=== PATIENT | female | born 1985 | race Caucasian/White ===

== ENCOUNTER 2024-01-20 18:04 | Inpatient (IN) | payer OTHER ==
--- NOTE | 2024-01-20 18:32 | ED ---
General Adult HPI - General Chief complaint: Abdominal Pain Stated complaint: Kidney stones Time Seen by Provider: 01/20/24 18:05 Source: patient, EMS, old records reviewed Mode of arrival: EMS Limitations: no limitations - History of Present Illness Initial comments: Patient is a 38-year-old female present to the emergency department with concerns for right flank pain. Patient has had symptoms intermittently over the past week. Patient was transferred from [facility]. Patient did have CT scan done there a few days ago showing right-sided kidney stone. Patient was having temperature up to 99. Patient is having continued pain. Patient does have some dysuria. Patient did present there again today and was transferred for urology care - Related Data Allergies Allergy/AdvReac Type Severity Reaction Status Date / Time No Known Allergies Allergy Verified 01/20/24 18:17 Review of Systems ROS Statement: Those systems with pertinent positive or pertinent negative responses have been documented in the HPI. ROS Other: All systems not noted in ROS Statement are negative. Constitutional: Denies: fever Eyes: Denies: eye pain ENT: Denies: ear pain Cardiovascular: Denies: chest pain Gastrointestinal: Reports: as per HPI, abdominal pain. Denies: nausea, vomiting Genitourinary: Reports: as per HPI, dysuria Musculoskeletal: Denies: back pain Past Medical History History of Any Multi-Drug Resistant Organisms: None Reported Past Psychological History: No Psychological Hx Reported Smoking Status: Current every day smoker Past Alcohol Use History: None Reported Past Drug Use History: None Reported General Exam Limitations: no limitations General appearance: alert, in no apparent distress Head exam: Present: normocephalic Eye exam: Present: normal appearance Neck exam: Present: normal inspection Respiratory exam: Present: normal lung sounds bilaterally Cardiovascular Exam: Present: tachycardia GI/Abdominal exam: Present: soft, tenderness (Mild tenderness right flank) Extremities exam: Present: normal inspection Neurological exam: Present: alert Psychiatric exam: Present: normal affect, normal mood Skin exam: Present: normal color Course Vital Signs 01/20/24 18:09 Temperature 97.9 F Pulse Rate 110 H Respiratory 18 Rate Blood Pressure 118/80 O2 Sat by Pulse 98 Oximetry Medical Decision Making - Medical Decision Making Was pt. sent in by a medical professional or institution (, PA, PRESS SMITH HELPER, urgent care, hospital, or fdc...) When possible be specific @ -Patient was sent from [facility] Did you speak to anyone other than the patient for history (EMS, parent, family, police, friend...)? What history was obtained from this source @ -No Did you review nursing and triage notes (agree or disagree)? Why? @ -I reviewed and agree with nursing and triage notes Were old charts reviewed (outside hosp., previous admission, EMS record, old EKG, old radiological studies, urgent care reports/EKG's, fdc records)? Report findings @ -Did review chart from [facility] Differential Diagnosis (chest pain, altered mental status, abdominal pain women, abdominal pain men, vaginal bleeding, weakness, fever, dyspnea, syncope, headache, dizziness, GI bleed, back pain, seizure, CVA, palpatations, mental health, musculoskeletal)? @ -Differential Abdominal Pain Women: Appendicitis, Cholecystitis, diverticulosis, ischemic bowel, pancreatitis, hepatitis, UTI, gastroenteritis, AAA, incarcerated hernia, bowel obstruction, constipation, inflammatory bowel, hepatitis, peptic ulcer disease, splenic infarction, perforated viscus, vulvitis, ovarian torsion, PID, kidney stone, placenta abruption, this is not meant to be an all-inclusive list EKG interpreted by me (3pts min.). @ -As above X-rays interpreted by me (1pt min.). @ -KUB shows no acute process CT interpreted by me (1pt min.). @ -None done U/S interpreted by me (1pt. min.). @ -None done What testing was considered but not performed or refused? (CT, X-rays, U/S, labs)? Why? @ -Consider CT scan however patient had 1 recently. Report reviewed What meds were considered but not given or refused? Why? @ -None Did you discuss the management of the patient with other professionals (professionals i.e. DrWhit, PA, PRESS SMITH HELPER, lab, RT, psych nurse, socially responsible investment adviser, air marshal, teacher, youth probation officer, medical case worker)? Give summary @ -Case was discussed with Dr. Balderas who will admit Was smoking cessation discussed for >3mins.? @ -No Was critical care preformed (if so, how long)? @ -No Were there social determinants of health that impacted care today? How? (Homelessness, low income, unemployed, alcoholism, drug addiction, transportation, low edu. Level, literacy, decrease access to med. care, longterm, rehab)? @ -No Was there de-escalation of care discussed even if they declined (Discuss DNR or withdrawal of care, Hospice)? DNR status @ -No What co-morbidities impacted this encounter? (DM, HTN, Smoking, COPD, CAD, Cancer, CVA, ARF, Chemo, Hep., AIDS, mental health diagnosis, sleep apnea, morbid obesity)? @ -None Was patient admitted / discharged? Hospital course, mention meds given and route, prescriptions, significant lab abnormalities, going to OR and other pertinent info. @ -Patient made aware of plan and recommendations to stay NPO. Patient will be admitted to urology's. Admission orders written. Undiagnosed new problem with uncertain prognosis? @ -No Drug Therapy requiring intensive monitoring for toxicity (Heparin, Nitro, Insulin, Cardizem)? @ -No Were any procedures done? @ -No Diagnosis/symptom? @ -Ureterolithiasis Acute, or Chronic, or Acute on Chronic? @ -Acute Uncomplicated (without systemic symptoms) or Complicated (systemic symptoms)? @ -Complicated with infection potential Side effects of treatment? @ -No Exacerbation, Progression, or Severe Exacerbation? @ -No Poses a threat to life or bodily function? How? (Chest pain, [place], [place], pneumonia, PE, COPD, DKA, ARF, appy, cholecystitis, CVA, Diverticulitis, Homicidal, Suicidal, threat to staff... and all critical care pts) @ -No Patient did receive IV antibiotics prior to transfer. This will be continued. Disposition Clinical Impression: Ureterolithiasis Disposition: ADMITTED IP TO THIS HOSP Is patient prescribed a controlled substance at d/c from ED?: No Referrals: None,Stated [Primary Care Provider] - 1-2 days Time of Disposition: 18:56
[2024-01-20] MEDS ORDERED: NALOXONE 0.4 MG/ML 1 ML VIAL IV PRN (18:53)
[2024-01-20] MEDS ORDERED: ONDANSETRON 4 MG/2 ML VIAL IVP PRN (18:53)
[2024-01-20] MEDS: SODIUM CHLORIDE 0.9% 1,000 ML IV SCH (19:44)
--- NOTE | 2024-01-20 19:49 | XR ---
EXAMINATION TYPE: XR KUB DATE OF EXAM: 01/20/2024 6:40 PM CLINICAL INDICATION:Female, 38 years old with history of stone pain; H COMPARISON: None. TECHNIQUE: One radiographic view of the abdomen was obtained. FINDINGS: The bowel gas pattern is nonspecific without dilated loops of small or large bowel. There i s no evidence for organomegaly or pneumoperitoneum. The osseous structures are intact. 5 mm density near the right ureterovesicular junction. Fecal material and gas are demonstrated throughout the colo n and rectum. Bilateral tubal ligation devices bilaterally. IMPRESSION: 1. There is a density near the bladder in the pelvis measuring up to 5 mm possibly representing flora ent's stone at the ureterovesicular junction. 2. Nonspecific bowel gas pattern without radiographic evidence for acute process.
[2024-01-20 20:02] LABS: Appearance,Urine Clear (Clear); Bacteria,Urine Occasional /hpf; Bilirubin,Urine Negative (Negative); Blood,Urine Trace (Negative); Color,Urine Colorless; Glucose,Urine (UA) Negative (Negative); Ketones,Urine Negative (Negative); Leukocyte Esterase,Urine Large (Negative); Nitrite,Urine Negative (Negative); PH, Urine 5.5 (5.0-8.0); Protein,Urine Negative (Negative); RBC,Urine 1 /hpf (0-5); Specific Gravity,Urine 1.003 (1.001-1.035); Squamous Epithelial Cell,Urine 1 /hpf (0-4); Urobilinogen,Urine <2.0 mg/dL (<2.0); WBC,Urine 31 /hpf (0-5)
--- NOTE | 2024-01-20 20:43 | P.GSHP ---
History of Present Illness H&P Date: 01/20/24 Chief Complaint: Right flank pain The patient is a 38-year-old white female who presented to [facility] on January 14, 2024 with right flank pain. CT scan of the abdomen and pelvis without contrast was obtained, revealing moderate right hydroureteronephrosis due to a 5 mm right UVJ calculus. Bilateral punctate renal calculi were also seen. She was not told at that time that she had a UTI, and was not placed on antibiotics. She presented back to the ER today with increased pain, which is radiating to the right lower quadrant. She also reports mild dysuria, low-grade fever, and chills. Urinalysis obtained at [facility] showed small leukocytes, positive nitrates, TNTC WBC, TNTC RBC. The WBC count was 23,000. The serum lactic acid level was 4.0. The serum creatinine level was 1.0, and the serum calcium level was 8.5. She was transferred to [facility] for further management. She received Rocephin prior to transfer. - Constitutional Constitutional: Reports chills, Reports fever - Gastrointestinal Gastrointestinal: Denies nausea, Denies vomiting - Genitourinary (Female) Genitourinary: Reports dysuria, Reports flank pain, Reports kidney stones, Denies hematuria Past Medical History History of Any Multi-Drug Resistant Organisms: None Reported Past Psychological History: No Psychological Hx Reported Smoking Status: Current every day smoker Past Alcohol Use History: None Reported Past Drug Use History: None Reported Medications and Allergies Home Medications Medication Instructions Recorded Confirmed Type No Known Home Medications 01/20/24 01/20/24 History Allergies Allergy/AdvReac Type Severity Reaction Status Date / Time No Known Allergies Allergy Verified 01/20/24 19:00 Surgical - Exam Vital Signs Temp Pulse Resp BP Pulse Ox 97.9 F 110 H 18 118/80 98 01/20/24 18:09 01/20/24 18:09 01/20/24 18:09 01/20/24 18:09 01/20/24 18:09 - General well developed, well nourished, no distress - Respiratory normal respiratory effort - Abdomen Abdomen: soft, tender (Mild right-sided tenderness), no guarding, no rigid, no rebound, no distended - Psychiatric oriented to time, oriented to person, oriented to place, speech is normal, memory intact Results - Imaging Abdominal x-ray: report reviewed, image reviewed CT scan - abdomen: report reviewed Assessment and Plan (1) Acute pyelonephritis Current Visit: Yes Status: Acute Code(s): N10 - ACUTE PYELONEPHRITIS SNOMED Code(s): 07363676 (2) Ureterolithiasis Current Visit: Yes Status: Acute Code(s): N20.1 - CALCULUS OF URETER SNOMED Code(s): 15713410 Plan: The patient appears to have acute right pyelonephritis complicated by an obstructing right distal ureteral calculus. The increased lactic acid level suggests that she may have underlying sepsis. I have recommended that she undergo cystoscopy with right ureteral stent insertion. The rationale for the stent, to relieve ureteral obstruction, was explained to the patient. She was also made aware of potential risks, which include anesthesia, inability to successfully place the stent, and ureteral injury. I explained to her that she will remain hospitalized until the infection is improving, and that she will be discharged home on oral antibiotics. She was also made aware of the fact that she will require a secondary procedure in 3 to 4 weeks, once the infection has cleared, consisting of cystoscopy, right ureteral stent removal, right ureteroscopy with laser lithotripsy and possible stone basketing. Time with Patient: Greater than 30
[2024-01-20] MEDS ORDERED: fentaNYL (PF) 50 MCG/ML 2 ML AMP ONE (20:51)
[2024-01-20] MEDS ORDERED: PHENYLEPHRINE 10 MG/ML VIAL ONE (20:51)
[2024-01-20] MEDS ORDERED: LIDOCAINE 1% INJ 10MG/ML (20 ML MDV) ONE (20:51)
[2024-01-20] MEDS ORDERED: PROPOFOL 10 MG/ML 20 ML VIAL IV ONE (20:51)
[2024-01-20] MEDS ORDERED: ESMOLOL 100 MG/10 ML VIAL ONE (20:51)
[2024-01-20] MEDS ORDERED: MIDAZOLAM 2 MG/2 ML VIAL ONE (20:51)
[2024-01-20] MEDS: SODIUM CHLORIDE 0.9% 1,000 ML IV ONE (20:56)
--- NOTE | 2024-01-20 21:39 | P.OP ---
Date of Procedure: 01/20/24 Preoperative Diagnosis: Right hydronephrosis secondary to right ureteral calculus Postoperative Diagnosis: Same Procedure(s) Performed: Cystoscopy, right ureteroscopy, right ureteral stent insertion Anesthesia: SOUTHA Surgeon: Fly Benites Estimated Blood Loss (ml): 0 IV fluids (ml): 800 Pathology: none sent Condition: stable Disposition: PACU Indications for Procedure: The patient is a 38-year-old white female who presented to [facility] with right flank pain due to a 5 mm right UVJ calculus. She has experienced worsening symptoms, and shows signs of sepsis. She was transferred to [facility] and now comes for stent insertion. Operative Findings: Obstructing, impacted 5 mm right distal ureteral calculus. Description of Procedure: The patient was taken to the operating room and placed in the dorsolithotomy position, with legs supported in Fadi stirrups. The external genitalia was prepped and draped sterilely. The 30 lens was used to introduce the 22-[place] Stortz cystoscopic sheath through the urethra and into the bladder under direct vision. The bladder was examined in its entirety. Both ureteral orifices were of normal anatomic location and configuration. No tumors or foreign bodies were seen. A 0.035 inch Glidewire was passed through the cystoscope. The right ureteral orifice was cannulated, and the Glidewire was slowly advanced 1 to 2 cm, at which point it met obstruction due to a 5 mm radiopaque ureteral calculus. Multiple attempts were made to alter the angle of the Glidewire, but it could not be advanced beyond the calculus. The cystoscope was removed, and the ACMI semirigid ureteroscope was advanced into the bladder. The right ureteral orifice was cannulated, and the ureteroscope was advanced up to the calculus. The calculus was noted to be impacted, with mucosa growing over a portion of the calculus. A small gap was identified between the calculus and the medial wall of the ureter. The Glidewire was passed through this And advanced up to the renal pelvis. The ureteroscope was removed, and the Glidewire was backloaded into the cystoscope, which was passed into the bladder. A 24 cm, 6-[place] double-J ureteral stent was placed over the wire. Proper stent positioning was verified fluoroscopically and endoscopically. Cloudy urine drained from the stent. With the beak of the cystoscope immediately adjacent to the distal end of the stent, urine was drained through the cystoscope and sent for culture and sensitivity. The bladder was emptied and the cystoscope removed. The patient tolerated the procedure well was taken to the recovery room in stable condition.
[2024-01-20] MEDS ORDERED: HYDROmorphone 1 MG/ML 1 ML SYRINGE IVP PRN (21:41)
[2024-01-20] MEDS: HYDROmorphone 0.5 MG/0.5 ML SYRINGE IVP ONE (21:53)
--- NOTE | 2024-01-20 22:00 | FL ---
EXAMINATION TYPE: FL guidance operating room Intraoperative/procedural fluoroscopic services were pro vided. Total fluoroscopy time is 7 seconds with a total of 1 submitted images to PACS. Please see the operative/procedural note for further details. DAP: 1.235 mGym2
[2024-01-20] MEDS: ADENOSINE 3 MG/ML 2 ML VIAL IVP ONE (22:52)
[2024-01-20 23:01] LABS: Glucose,Whole Blood 92 mg/dL (70-110)
[2024-01-20] MEDS: DEXTROSE 5%-0.45% NACL 1,000 ML IV SCH (23:07)
[2024-01-20] MEDS: HEPARIN SODIUM,PORCINE 5,000 UNIT/ML 1 ML VIAL SQ SCH (23:36)
[2024-01-20] MEDS: ACETAMINOPHEN TAB 325 MG TAB PO PRN (23:57)
[2024-01-21] MEDS: HYDROmorphone 0.5 MG/0.5 ML SYRINGE IVP PRN (04:49)
[2024-01-21] MEDS: HYDROmorphone 1 MG/ML 1 ML SYRINGE IVP PRN (08:10)
[2024-01-21] MEDS: PANTOPRAZOLE 40 MG/10 ML VIAL IV SCH (08:10)
[2024-01-21 08:42] LABS: Basophils # (A) 0.04 X 10*3/uL (0.00-0.10); Basophils % (A) 0.2 %; Eosinophils # (A) 0.16 X 10*3/uL (0.04-0.35); HCT 38.2 % (37.2-46.3); HGB 12.3 g/dL (12.0-15.0); Lymphocytes # (A) 0.69 X 10*3/uL (0.90-5.00); Lymphocytes % (A) 4.1 %; MCH 30.8 pg (27.0-32.0); MCHC 32.2 g/dL (32.0-37.0); MCV 95.5 FL (80.0-97.0); Mean Platelet Volume 11.6 FL (9.5-12.2); Monocytes # (A) 1.08 X 10*3/uL (0.20-1.00); Monocytes % (A) 6.4 %; NRBC Per 100 WBC 0 X 10*3/uL (0.00-0.01); Neutrophils # (A) 14.65 X 10*3/uL (1.80-7.70); Neutrophils % (A) 87.4 %; Platelet Count 136 X 10*3/uL (140-440); RDW 13.5 % (11.5-14.5); WBC 16.77 X 10*3/uL (4.50-10.00)
[2024-01-21 08:53] LABS: ALT 16 U/L (8-44); AST 19 U/L (13-35); Albumin 3.1 g/dL (3.8-4.9); Albumin/Globulin Ratio 1.55 Ratio (1.60-3.17); Alkaline Phosphatase 108 U/L (41-126); BUN/Creat Ratio 13.75 Ratio (12.00-20.00); Calcium 7.6 mg/dL (8.7-10.3); Carbon Dioxide 21.3 mmol/L (21.6-31.8); Chloride 104 mmol/L (96-109); Glucose 114 mg/dL (70-110); Potassium 4.1 mmol/L (3.5-5.5); Sodium 136 mmol/L (135-145); Total Bilirubin 0.4 mg/dL (0.3-1.2); Total Protein 5.1 g/dL (6.2-8.2)
--- NOTE | 2024-01-21 09:11 | P.PN ---
Subjective Progress Note Date: 01/21/24 Principal diagnosis: Acute right pyelonephritis Patient was admitted with right hydronephrosis due to a right distal ureteral calculus. Additionally, she appears to have a UTI with sepsis. She remains tachycardic but is afebrile. She states that her pain is improved. Objective - Vital Signs Vital signs: Vital Signs Temp 98.9 F 01/21/24 06:00 Pulse 124 H 01/21/24 04:00 Resp 18 01/21/24 04:00 BP 116/89 01/21/24 04:00 Pulse Ox 97 01/21/24 04:00 FiO2 Intake & Output 01/20/24 01/20/24 01/21/24 06:59 18:59 06:59 Intake Total 2290 Output Total 800 Balance 1490 Weight 81.647 kg 86.7 kg Intake: IV 1750 Dextrose 5%-0.45% NaCl 1, 700 000 ml @ 100 mls/hr IV . Q10H [facility] Rx#:[id number] cefTRIAXone 1 gm In 50 Sodium Chloride 0.9% 50 ml @ 100 mls/hr IVPB Q12HR [facility] Rx#:[id number] Oral 540 Output: Urine 800 Estimated Blood Loss 0 Other: Voiding Method Bedside Commode - Constitutional General appearance: Present: average body habitus, cooperative, no acute distress - Gastrointestinal Gastrointestinal Comment(s): Soft, non-distended. Mild right-sided tenderness, no guarding or rebound. - Psychiatric Psychiatric: Present: A&O x's 3 - Labs CBC & Chem 7: 01/21/24 05:47 01/21/24 05:47 Labs: Abnormal Lab Results - Last 24 Hours (Table) 01/20/24 Range/Units 19:41 Urine Blood Trace H (Negative) Ur Leukocyte Esterase Large H (Negative) Urine WBC 31 H (0-5) /hpf Urine Bacteria Occasional H (None) /hpf Assessment and Plan (1) Acute pyelonephritis Current Visit: Yes Status: Acute Code(s): N10 - ACUTE PYELONEPHRITIS SNOMED Code(s): 17086458 (2) Ureterolithiasis Current Visit: Yes Status: Acute Code(s): N20.1 - CALCULUS OF URETER SNOMED Code(s): 26041724 Plan: The patient appears to have acute right pyelonephritis complicated by an obstructing right distal ureteral calculus. She has undergone right ureteral stent insertion and is receiving ceftriaxone, and her condition is improved. The urine culture is pending.
[2024-01-21] MEDS: HYDROcodone/APAP 5-325MG 1 EACH TAB PO PRN (23:00)
[2024-01-22] MEDS: Acetaminophen-Codeine 300-30mg TAB PO PRN (07:41)
--- NOTE | 2024-01-22 09:20 | P.PN ---
Subjective Progress Note Date: 01/22/24 Principal diagnosis: Acute right pyelonephritis Patient was admitted with right hydronephrosis due to a right distal ureteral calculus. Additionally, she appears to have a UTI with sepsis. She remains tachycardic but is afebrile. She states that her flank pain is improved. She denies dysuria and hematuria. Her primary complaint at this time is a headache. Objective - Vital Signs Vital signs: Vital Signs Temp 98.2 F 01/22/24 04:00 Pulse 106 H 01/22/24 04:00 Resp 27 H 01/22/24 04:00 BP 125/99 01/22/24 04:00 Pulse Ox 96 01/22/24 04:00 FiO2 Intake & Output 01/21/24 01/21/24 01/22/24 06:59 18:59 06:59 Intake Total 2290 850 1580 Output Total 790 066 3791 Balance 1490 100 380 Weight 86.7 kg 89 kg Intake: IV 6789 194 1998 Dextrose 5%-0.45% NaCl 1, 986 957 1099 000 ml @ 100 mls/hr IV . Q10H [facility] Rx#:[id number] cefTRIAXone 1 gm In 50 50 50 Sodium Chloride 0.9% 50 ml @ 100 mls/hr IVPB Q12HR [facility] Rx#:[id number] Oral 540 380 Output: Urine 659 184 7969 Estimated Blood Loss 0 Other: Voiding Method Bedside Commode Bedside Commode Bedside Commode # Voids 1 2 - Constitutional General appearance: Present: average body habitus, cooperative, mild distress - Gastrointestinal General gastrointestinal: Present: soft. Absent: distended, tenderness - Psychiatric Psychiatric: Present: A&O x's 3 - Labs CBC & Chem 7: 01/21/24 05:47 01/21/24 05:47 Labs: Abnormal Lab Results - Last 24 Hours (Table) 01/21/24 01/21/24 Range/Units 05:47 05:47 WBC 16.77 H (4.50-10.00) X 10*3/uL RBC 4.00 L (4.10-5.20) X 10*6/uL Plt Count 136 L (140-440) X 10*3/uL Immature Gran # 0.15 H (0.00-0.04) X 10*3/uL Neutrophils # 14.65 H (1.80-7.70) X 10*3/uL Lymphocytes # 0.69 L (0.90-5.00) X 10*3/uL Monocytes # 1.08 H (0.20-1.00) X 10*3/uL Carbon Dioxide 21.3 L (21.6-31.8) mmol/L Glucose 114 H (70-110) mg/dL Calcium 7.6 L (8.7-10.3) mg/dL Total Protein 5.1 L (6.2-8.2) g/dL Albumin 3.1 L (3.8-4.9) g/dL Albumin/Globulin Ratio 1.55 L (1.60-3.17) Ratio Assessment and Plan (1) Acute pyelonephritis Current Visit: Yes Status: Acute Code(s): N10 - ACUTE PYELONEPHRITIS SNOMED Code(s): 42091031 (2) Ureterolithiasis Current Visit: Yes Status: Acute Code(s): N20.1 - CALCULUS OF URETER SNOMED Code(s): 17886911 Plan: The patient appears to have acute right pyelonephritis complicated by an obstructing right distal ureteral calculus. She has undergone right ureteral stent insertion and is receiving ceftriaxone, and her condition is improved. The urine culture is pending, but I am hopeful that preliminary results will be available later today. Excedrin has been ordered for her headache..
[2024-01-22] MEDS: ASPIRIN-ACET-CAFF 250-250-65MG 1 EACH TAB PO PRN (15:20)
[2024-01-22 20:00] LABS: Basophils % (A) 1 %; Eosinophils # (A) 0.3 k/uL (0-0.7); Eosinophils % (A) 4 %; HCT 36.5 % (34.0-46.0); HGB 11.6 gm/dL (11.4-16.0); Lymphocytes % (A) 13 %; MCH 31.3 pg (25.0-35.0); MCHC 31.9 g/dL (31.0-37.0); MCV 98.2 fL (80.0-100.0); Monocytes # (A) 0.6 k/uL (0-1.0); Monocytes % (A) 8 %; Neutrophils # (A) 5.5 k/uL (1.3-7.7); Neutrophils % (A) 70 %; Platelet Count 158 k/uL (150-450); RBC 3.72 m/uL (3.80-5.40); RDW 13.4 % (11.5-15.5); WBC 7.8 k/uL (3.8-10.6)
[2024-01-23 09:43] VITALS: RESP 16
[2024-01-23] MEDS: amLODIPine 5 MG TAB PO SCH (10:31)
[2024-01-23 12:18] VITALS: BP 136/87; PULSE 87; TEMP 98
--- NOTE | 2024-01-23 15:43 | P.CONS ---
History of Present Illness - Reason for Consult Consult date: 01/23/24 - Chief Complaint medical consult for htn, headache - History of Present Illness 38 year old woman with no known medical history presented for nephroureteral stent with urology with evidence of UTI. Medicine was consulted for HTN and headache. Pt says her headache started along with her symptoms of flank pain a few days ago. She has never been diagnosed with HTN in the past. She does not follow with a PCP in clinic. She has no chest pain, n/v, visual changes, muscular weakness. She is otherwise doing well s/p NUS placement. Denies f/c, abd pain. Flank pain has improved. Pt is afebrile, 139/102, HR 93, 100% RA. CBC, BMP, LFTs are unremarkable. UA showed 31 WBC, +LE, occasional bacteria. KUB XR showed density near the bladder in the pelvis measuring up to 5mm. All Systems reviewed and pertinent positives and negatives noted in HPI, all other symptoms are negative Gen: In NAD, non-toxic HEENT: normocephalic, atraumatic, hearing acuity is intant, mucous membranes moist CVS: perfusing all extremities well, no pitting edema, Respiratory: symmetric chest expansion, no accessory muscle use, GI: soft, NTTP, ND, : no suprapubic tenderness, no CVA tenderness MSK/Derm: no rashes, cyanosis Neuro: CN II-XII intact, no motor weakness, Psych: cooperative, euthymic mood, judgment and insight is intact Labs and Images as above Assessment/plan: HTN, essential Headache -start patient on amlodipine -recommend f/u with PCP referral to titrate meds -pain control for headache which is likely related to pain/medications from UTI Complicated UTI Nephrolithiasis -care per primary team Pt is full code. Pt is medically cleared for discharge with new script for amlodipine. Past Medical History Past Medical History: No Reported History History of Any Multi-Drug Resistant Organisms: None Reported Past Surgical History: No Surgical Hx Reported Past Anesthesia/Blood Transfusion Reactions: No Reported Reaction Past Psychological History: No Psychological Hx Reported Smoking Status: Current every day smoker Past Alcohol Use History: None Reported Past Drug Use History: None Reported - Past Family History Father Additional Family Medical History / Comment(s): Appendectomy Mother Family Medical History: Cancer Additional Family Medical History / Comment(s): cervical cancer Medications and Allergies Home Medications Medication Instructions Recorded Confirmed Type Ciprofloxacin HCl [Cipro] 500 mg PO Q12HR #10 tab 01/23/24 Rx Ketorolac [Toradol] 10 mg PO Q6HR PRN #10 tab 01/23/24 Rx RX: Tamsulosin [Flomax] 0.4 mg PO DAILY #30 cap 01/23/24 Rx RX: amLODIPine [Norvasc] 5 mg PO DAILY #30 tab 01/23/24 Rx Allergies Allergy/AdvReac Type Severity Reaction Status Date / Time No Known Allergies Allergy Verified 01/20/24 19:00 Physical Exam Osteopathic Statement: *. No significant issues noted on an osteopathic structural exam other than those noted in the History and Physical/Consult. Vitals: Vital Signs Temp Pulse Resp BP Pulse Ox 01/23/24 11:48 98.0 F 87 16 136/87 100 01/23/24 08:00 98.1 F 93 16 141/105 100 01/23/24 04:00 97.5 F L 105 H 12 139/102 100 01/23/24 00:00 98.0 F 93 16 145/102 100 01/22/24 20:00 98.1 F 95 16 152/99 100 01/22/24 16:00 97.8 F 105 H 18 140/100 Intake and Output 01/23/24 01/23/24 01/23/24 06:59 14:59 22:59 Intake Total 1150 1080 Output Total 1000 600 Balance 150 480 Intake: IV 650 600 Dextrose 5%-0.45% NaCl 1, 600 550 000 ml @ 50 mls/hr IV . Q20H [facility] Rx#:[id number] cefTRIAXone 1 gm In 50 50 Sodium Chloride 0.9% 50 ml @ 100 mls/hr IVPB Q12HR [facility] Rx#:[id number] Oral 500 480 Output: Urine 1000 600 Other: Voiding Method Bedside Commode Bedside Commode # Voids 2 1 Weight 89.4 kg Results CBC & Chem 7: 01/22/24 19:45 01/21/24 05:47 Labs: Abnormal Lab Results - Last 24 Hours (Table) 01/22/24 Range/Units 19:45 RBC 3.72 L (3.80-5.40) m/uL Microbiology - Last 24 Hours (Table) 01/20/24 21:32 Urine Culture - Final Urine,Ureter 01/20/24 19:41 Urine Culture - Final Urine,Voided
[2024-01-24] MEDS ORDERED: PANTOPRAZOLE 40 MG TABLET PO SCH (07:30)
== END 2024-01-23 13:40 | disposition home or self-care (01) | DRG 720 ==
LOC: EC 18:04 → 6NMEDSUR 18:53 → 2SICU 22:17 → OBSVTOIN 22:49
PROVIDERS: ADMIT Urology; ATTEND Urology
PROC: 0T768DZ Dilation of Right Ureter with Intraluminal Device, Via Natural or Artificial Opening Endoscopic (ICD-10-PCS; principal; 2024-01-20 20:30)
DX: A41.9 Sepsis, unspecified organism (principal); N13.6 Pyonephrosis; F17.210 Nicotine dependence, cigarettes, uncomplicated; R00.0 Tachycardia, unspecified; I10 Essential (primary) hypertension; Z79.899 Other long term (current) drug therapy
CPT/HCPCS: 74018; 80053; 81001; 81025; 85025; 87086; 96360; 99285

== ENCOUNTER 2024-01-30 07:32 | Day surgery (SDC) | payer OTHER ==
--- NOTE | 2024-01-26 01:07 | P.GSHP ---
History of Present Illness H&P Date: 01/26/24 Chief Complaint: Right flank pain The patient is a 38-year-old white female who presented to [facility] on January 14, 2024 with right flank pain. CT scan of the abdomen and pelvis without contrast was obtained, revealing moderate right hydroureteronephrosis due to a 5 mm right UVJ calculus. Bilateral punctate renal calculi were also seen. She was not told at that time that she had a UTI, and was not placed on antibiotics. She presented back to the ER on January 19 with increased pain, which is radiating to the right lower quadrant. She also reported mild dysuria, low-grade fever, and chills. Urinalysis obtained at [facility] showed small leukocytes, positive nitrates, TNTC WBC, TNTC RBC. The WBC count was 23,000. The serum lactic acid level was 4.0. The serum creatinine level was 1.0, and the serum calcium level was 8.5. She was transferred to [facility] for further management. She received Rocephin prior to transfer. Upon arriving to [facility], she underwent cystoscopy with right ureteral stent insertion. The urine culture obtained during that admission was negative, though perhaps falsely negative because she received Rocephin prior to transfer. She was thus discharged home on ciprofloxacin. She now comes for cystoscopy, right ureteral stent removal, right ureteroscopy with laser lithotripsy and possible stone basketing. - Constitutional Constitutional: Reports as per HPI - Cardiovascular Cardiovascular: Reports high blood pressure - Genitourinary (Female) Genitourinary: Reports as per HPI Past Medical History Past Medical History: No Reported History History of Any Multi-Drug Resistant Organisms: None Reported Past Surgical History: No Surgical Hx Reported Past Anesthesia/Blood Transfusion Reactions: No Reported Reaction Past Psychological History: No Psychological Hx Reported Smoking Status: Current every day smoker Past Alcohol Use History: None Reported Past Drug Use History: None Reported - Past Family History Father Additional Family Medical History / Comment(s): Appendectomy Mother Family Medical History: Cancer Additional Family Medical History / Comment(s): cervical cancer Medications and Allergies Home Medications Medication Instructions Recorded Confirmed Type Ciprofloxacin HCl [Cipro] 500 mg PO Q12HR #10 tab 01/23/24 Rx Ketorolac [Toradol] 10 mg PO Q6HR PRN #10 tab 01/23/24 Rx Tamsulosin [Flomax] 0.4 mg PO DAILY #30 cap 01/23/24 Rx amLODIPine [Norvasc] 5 mg PO DAILY #30 tab 01/23/24 Rx Allergies Allergy/AdvReac Type Severity Reaction Status Date / Time No Known Allergies Allergy Verified 01/20/24 19:00 Surgical - Exam - General well developed, well nourished, no distress - Respiratory normal respiratory effort - Abdomen Abdomen: soft, non tender, no guarding, no rigid, no rebound - Genitourinary normal external genitalia - Psychiatric oriented to time, oriented to person, oriented to place, speech is normal, memory intact Results - Imaging CT scan - abdomen: report reviewed Assessment and Plan (1) Ureterolithiasis Status: Acute Code(s): N20.1 - CALCULUS OF URETER SNOMED Code(s): 46970104 Plan: Cystoscopy, right ureteral stent removal, right ureteroscopy with Holmium laser lithotripsy and possible stone basketing. The procedure has been reviewed in detail with the patient. She has been made aware of potential risks, which include anesthesia, ureteral injury, and inability to successfully remove the calculus.
[2024-01-28 10:20] VITALS: BMI 32.2
[2024-01-30] MEDS ORDERED: fentaNYL (PF) 50 MCG/ML 2 ML AMP IV PRN (07:38)
[2024-01-30] MEDS ORDERED: METOCLOPRAMIDE 5 MG/ML 2 ML VIAL IVP PRN (07:38)
[2024-01-30] MEDS ORDERED: HYDROmorphone 0.5 MG/0.5 ML SYRINGE IVP PRN (07:38)
--- NOTE | 2024-01-30 08:00 | XR ---
EXAMINATION TYPE: XR KUB DATE OF EXAM: 01/30/2024 Comparison: 01/20/2024 Clinical History: 38-year-old female N20.1 Right Ureteral Stone Findings: Right-sided ureteral stent in place. Nonobstructive bowel gas pattern. No significant stool burden. P ossible subtle 5 mm calcification along the distal aspect of the stent. Bilateral Essure devices. Ost eitis pubis. Impression: Possible 5 mm calcification along the distal aspect of the right ureteral stent.
[2024-01-30] MEDS: IV FLUID CONTINUATION 1,000 ML IV ONE (08:36)
[2024-01-30] MEDS: LIDOCAINE 1% (10MG/ML) FOR IV START INTRADERMA PRN (08:37)
[2024-01-30] MEDS: LACTATED RINGERS 1,000 ML IV SCH (08:37)
[2024-01-30] MEDS: ONDANSETRON 4 MG/2 ML VIAL IVP ONE (08:37)
[2024-01-30] MEDS: DEXAMETHASONE SOD PHOSPHATE 4 MG/ML 1 ML VIAL IV ONE (08:38)
[2024-01-30] MEDS ORDERED: MIDAZOLAM 2 MG/2 ML VIAL ONE (08:50)
[2024-01-30] MEDS ORDERED: KETAMINE HCL IN 0.9 % NACL 50 MG/5 ML SYRINGE ONE (08:50)
[2024-01-30] MEDS ORDERED: PROPOFOL 10 MG/ML 20 ML VIAL IV ONE (08:50)
[2024-01-30] MEDS ORDERED: fentaNYL (PF) 50 MCG/ML 2 ML AMP ONE (08:50)
--- NOTE | 2024-01-30 09:21 | P.OP ---
Date of Procedure: 01/30/24 Preoperative Diagnosis: Right ureteral calculus Postoperative Diagnosis: Same Procedure(s) Performed: Cystoscopy, right ureteral stent removal, right ureteroscopy with Holmium laser lithotripsy Anesthesia: STEFF Surgeon: Fly Benites Estimated Blood Loss (ml): 0 IV fluids (ml): 500 Pathology: other (Right ureteral calculus fragments, sent for chemical analysis) Condition: stable Disposition: PACU Indications for Procedure: The patient is a 38-year-old white female who presented to [facility] on January 14, 2024 with right flank pain. CT scan of the abdomen and pelvis without contrast was obtained, revealing moderate right hydrouret eronephrosis due to a 5 mm right UVJ calculus. Bilateral punctate renal calculi were also seen. She was not told at that time that she had a UTI, and was not placed on antibiotics. She presented back to the ER on January 19 with increased pain, which is radiating to the right lower quadrant. She also reported mild dysuria, low-grade fever, and chills. Urinalysis obtained at [facility] showed small leukocytes, positive nitrates, TNTC WBC, TNTC RBC. The WBC count was 23,000. The serum lactic acid level was 4.0. The serum creatinine level was 1.0, and the serum calcium level was 8.5. She was transferred to [facility] for further management. She received Rocephin prior to transfer. Upon arriving to [facility], she underwent cystoscopy with right ureteral stent insertion. The urine culture obtained during that admission was negative, though perhaps falsely negative because she received Rocephin prior to transfer. She was thus discharged home on ciprofloxacin. She now comes for cystoscopy, right ureteral stent removal, right ureteroscopy with laser lithotripsy and possible stone basketing. Operative Findings: Right distal ureteral calculus, fragmented and removed completely. Description of Procedure: The patient was taken to the operating room and placed in the dorsolithotomy position, with legs supported in Fadi stirrups. The external genitalia was prepped and draped sterilely. The 30 lens was used to introduce the 21-German Gilman cystoscopic sheath through the urethra and into the bladder under direct vision. The bladder was examined in its entirety. Grasping forceps were used to grasp the distal end of the right ureteral stent, which was removed along with the cystoscope. The Gilman semirigid ureteroscope was advanced into the bladder, and the right ureteral orifice was cannulated. The ureteroscope was slowly advanced under direct vision, up to the calculus. The 272 micron Holmium laser probe was passed through the ureteroscope, and lithotripsy was performed. After fragmenting the calculus, the small calculus fragments passed distally into the bladder. Ureteroscopy confirmed that there were no residual calculus fragments within the ureter, and no evidence of ureteral trauma. After removing the ureteroscope, the cystoscope was replaced into the bladder, to drain the bladder and remove the calculus fragments which were sent for chemical analysis. The patient tolerated the procedure well and was taken to the recovery room in stable condition. KELLY ROCKS Report: Procedure Acuity: Elective Stone Size and Location: 5 mm, right distal ureter Ureteral Dilation: No Ureteral Access Sheath Used: No Stone Sent for Analysis: Yes All Stones/Fragments Were Removed with a Basket: No Complications: No Preoperative Antibiotics Given: Yes Stent Placed: No Discharge Medications: None
[2024-01-30 09:28] VITALS: RESP 16; TEMP 97
[2024-01-30 10:34] VITALS: BP 125/77; PULSE 88
== END 2024-01-30 10:55 | disposition home or self-care (01) ==
LOC: OR 07:32
PROVIDERS: ATTEND Urology
DX: N20.1 Calculus of ureter (principal); I10 Essential (primary) hypertension; F17.200 Nicotine dependence, unspecified, uncomplicated; Z79.899 Other long term (current) drug therapy; Z91.040 Latex allergy status; Z98.890 Other specified postprocedural states
CPT/HCPCS: 81025; 82365; 74018; 52353; C1769; J2250; J1100; J0690; J2405; J3010; J2704